=== PATIENT | male | born 1955 | race Caucasian/White ===

== ENCOUNTER 2016-06-23 07:57 | Day surgery (SDC) | payer OTHER ==
[2016-06-23] MEDS ORDERED: FENTANYL CITRATE 50 MCG/ML SOL ONE (08:51)
[2016-06-23] MEDS ORDERED: MIDAZOLAM 2 MG/2 ML SOL ONE (08:51)
[2016-06-23] MEDS ORDERED: PROPOFOL 10 MG/ML EMU IV ONE (09:05)
[2016-06-23] MEDS ORDERED: KETOROLAC TROMETHAMINE 30 MG/ML SOL ONE (09:10)
[2016-06-23] MEDS: LIDOCAINE HCL 2% MPF SOL ONE ×2 (09:22→09:32)
[2016-06-23] MEDS: BUPIVACAINE HCL 0.5% MPF 10 ML SOL ONE ×2 (09:22→09:32)
[2016-06-23 11:07] VITALS: TEMP 97.5; O2SAT 95
[2016-06-23 11:42] VITALS: BP 101/62; PULSE 62; RESP 20
== END 2016-06-23 12:16 | disposition home or self-care (01) ==
LOC: SURG 07:57
PROVIDERS: ATTEND Orthopaedic Surgery
DX: G56.03 Carpal tunnel syndrome, bilateral upper limbs (principal)
CPT/HCPCS: 29848; J1885; J2250; J2704; J3010; A6402